=== PATIENT | male | born 2000 | race Caucasian/White ===

== ENCOUNTER 2022-02-11 17:53 | Emergency (ER) | payer OTHER ==
[2022-02-11] MEDS ORDERED: cloNIDine 0.1 MG Tab PO ONE ×2 (19:43→20:28)
[2022-02-11] MEDS ORDERED: Ketorolac 30 MG/ML SDV IM ONE (19:43)
[2022-02-11] MEDS ORDERED: cloNIDine 0.1 MG Tab PO PRN (20:23)
== END 2022-02-11 20:36 | disposition home or self-care (01) ==
LOC: JP.ED 17:53
DX: F11.23 Opioid dependence with withdrawal (principal); Z72.0 Tobacco use; Z86.16 Personal history of COVID-19
CPT/HCPCS: 96372; 99283; A9270; J1885